=== PATIENT | female | born 1955 | race Caucasian/White ===

== ENCOUNTER 2016-12-27 09:16 | Emergency (ER) | payer BC ==
[2016-12-27 09:38] VITALS: BP 155/92
[2016-12-27] MEDS ORDERED: Nitroglycerin TAB 0.4 MG* 0.4 MG TAB SL ONE (09:38)
--- NOTE | 2016-12-27 09:45 | UC ---
Cardiac HPI - HPI Summary HPI Summary: 61 yr old healthy female with h/o "micri brain bleeds" with severe crushing left sided chest pain on/off x > 1 week that is suddenly worse this morning upon awakening at 7 AM. Feels like " a heard of elephants are sitting on my chest". + SOB, nausea and pain into left arm and pain into back. She flew to [place] 1 wk ago. pain had started prior to that. She did have episodes of this while she was walking around [place] as well but thought it would go away. Flew back in yesterday. Denies h/o DM, htn lipids or smoking. Move was in her 60s when she had 1st cardiac event. States that she cannot take ASA bc brain bleeds. PCP Kayla Lara. BP was nml at home yesterday. She did have pain yesterday as well but did not seek help with any episodes. - History of Current Complaint Stated Complaint: MASSIVE CHEST PAIN Time Seen by Provider: 12/27/16 09:23 - Allergy/Home Medications Allergies/Adverse Reactions: Allergies Allergy/AdvReac Type Severity Reaction Status Date / Time Aspirin Allergy Severe MICRO Verified 12/27/16 09:29 BLEEDS. Penicillin G Allergy Hives Verified 12/27/16 09:25 Home Medications: Home Medications NK [No Home Medications Reported] 12/27/16 [History Confirmed 12/27/16] PMH/Surg Hx/FS Hx/Imm Hx Previously Healthy: Yes Endocrine History Of: Denies: Diabetes Cardiovascular History Of: Denies: Hypertension, Pacemaker/ICD Respiratory History Of: Denies: Asthma GI/ History Of: Denies: Renal Disease - Surgical History Surgical History: Yes Surgery Procedure, Year, and Place: APPY; TUBAL LIGATION;ARTHOSCOPY RIGHT KNEE; RIGHT GRANDULAR LYMPH NODE REMOVAL - Family History Known Family History: Positive: Cardiac Disease - Mom in 60s and of massive UT. - Social History Alcohol Use: None Substance Use Type: None Smoking Status (MU): Former Smoker When Did the Patient Quit Smoking/Using Tobacco: 15 years ago Review of Systems Constitutional: Negative, Fatigue Skin: Negative Eyes: Negative ENT: Negative Respiratory: Shortness Of Breath Cardiovascular: Chest Pain - radiates to left arm and back. pain 8-9/10 "crushing" Gastrointestinal: Negative Genitourinary: Negative Motor: Negative Neurovascular: Negative Musculoskeletal: Negative Neurological: Negative Psychological: Negative All Other Systems Reviewed And Are Negative: Yes Physical Exam Triage Information Reviewed: Yes Appearance: Ill-Appearing, Other: - lethargic Vital Signs Reviewed: Yes Eye Exam: Normal ENT Exam: Normal ENT: Positive: Pharynx normal Neck exam: Normal Neck: Positive: Supple, Nontender, No Lymphadenopathy Respiratory: Positive: Chest non-tender, Lungs clear, Normal breath sounds, No respiratory distress, No accessory muscle use. Negative: Crackles, Rhonchi, Stridor, Wheezing Cardiovascular Exam: Normal Cardiovascular: Positive: RRR, No Murmur, Pulses Normal, Brisk Capillary Refill Abdomen Description: Positive: Nontender, Soft Bowel Sounds: Positive: Present Musculoskeletal Exam: Normal Neurological Exam: Normal Psychological Exam: Normal Skin Exam: Normal - Assessment/Plan Course Of Treatment: O2 NC applied. EKG - NSR, nml axis, no AV/IV changes, no ST/T changes. No previous. IV placed followed by NTG 0.4 mcg SL. Paramedics arrived in timely mannor. - Differential Diagnoses - Chest Pain Differential Diagnosis/HQI/PQRI: Acute UT, ACS, Angina - Differential Diagnoses - Hypertension Differential Diagnosis/HQI PQRI: AAA, Angina, Myocardial Infarction - Differential Diagnoses - Palpitations Differential Diagnosis/HQI/PQRI: Coronary Artery Disease, Pericarditis, Pulmonary Embolism - Clinical Impression Provider Diagnoses: chest pain - Physician Notifications Discussed Patient Care With: Dr Coker at [place] [facility] - presentation, hx and plan reviewed and she accepts pt. [place] is the closest sight and b/c high risk condition will be transferred there. Time Discussed With Above Provider: 09:30 Instructed by Provider To: MD Will See In ED Discharge - Discharge Plan Condition: Guarded Disposition: TRANS HIGHER LVL OF CARE FAC Referrals: Kayla Lara MD [Primary Care Provider] -
== END 2016-12-27 09:35 | disposition short-term general hospital (02) ==
LOC: UCCORT 09:16
DX: R07.89 Other chest pain (principal); R06.02 Shortness of breath; M79.602 Pain in left arm; R11.0 Nausea; Z88.6 Allergy status to analgesic agent; Z88.0 Allergy status to penicillin; Z87.891 Personal history of nicotine dependence
CPT/HCPCS: 93005; 99203; G0463

== ENCOUNTER → 2019-09-19 08:15 | Day surgery (SDC) | payer OTHER ==
[~2019-09-19 08:15] MED LIST: Buffered Lidocaine 1% SYRIN* 1 ML/SYRINGE INTRADERM ONE; Bupivacaine 0.25% SDV* 30 ML ONE; Clindamycin 900 MG/D5W BAG(*) 900 MG/50 ML BAG IVPB ONE; Lactated Ringers 1000 ML Bag* 1,000 ML IV SCH; Lidocaine 2% PF * 5 ML VIAL ONE; Midazolam* 1 MG/ML 2 ML VIAL (2 MG) ONE; Propofol* 10 MG/ML 20 ML BTL ONE; fentaNYL* 50 MCG/ML 2 ML VIAL (100 MCG VIAL) ONE
[2019-09-19 15:21] VITALS: BP 118/63
--- NOTE | 2019-09-19 21:04 | OP ---
DATE OF OPERATION: 09/19/19 - SDS DATE OF : 55 SURGEON: Leo Medina MD POST OFFICE MARKUP CLERK: None. ANESTHESIOLOGIST: Dr. Piper. ANESTHESIA: Local MAC. PRE-OP DIAGNOSIS: Dorsal mass just proximal to the left middle finger proximal interphalangeal joint. POST-OP DIAGNOSIS: Deep mass over the dorsum of the posterior left proximal phalanx. OPERATIVE PROCEDURE: Excision of deep mass, left middle finger, which was deep to the extensor tendon. INDICATIONS: is 64 years old. She has a very large mass over the dorsum of the joint. There are degenerative changes in the joint. What was bothering her is the large bump. I talked to her about treatment options. She wanted to proceed. ESTIMATED BLOOD LOSS: 2 mL. COMPLICATIONS: None. FINDINGS: See above and below. DESCRIPTION OF PROCEDURE: Ms. Luna was seen in the preoperative holding area. The correct site, side, and procedure were identified. We came back to the operating room where the arm was prepped and draped in the usual fashion and a time- out was performed. The arm was exsanguinated and the tourniquet inflated. I made an oblique incision over the dorsal ulnar aspect of the left middle finger just proximal to the PIP joint and extending down towards the PIP joint, full-thickness flap was raised off the extensor tendon. I then incised the tendon longitudinally. I was unable to excise a mass just deep to that. It looked like a large ossicle , but it was sent off as a specimen. At this point, everything was looking good. The wound was irrigated out. The tendon split was closed with 4-0 PDS suture. Skin was closed with 4-0 nylon suture. A soft dressing was applied and she was taken to the recovery room in stable condition. [id number]/[facility] #: [id number] [facility]
== END | disposition home or self-care (01) ==
LOC: OR 08:15
PROVIDERS: ATTEND Orthopaedic Surgery Hand Surgery
DX: D16.12 Benign neoplasm of short bones of left upper limb (principal); Z88.0 Allergy status to penicillin; G44.89 Other headache syndrome; D18.02 Hemangioma of intracranial structures; R42 Dizziness and giddiness; Z87.891 Personal history of nicotine dependence
CPT/HCPCS: 88304; 88311; J2250; J2704; J3010; J3490